=== PATIENT | male | born 1960 | race Caucasian/White ===

== ENCOUNTER 2021-10-15 10:07 | Day surgery (SDC) | payer OTHER ==
[2021-10-11 13:33] VITALS: BMI 23.7
[2021-10-15 12:04] VITALS: BP 124/76; PULSE 48; TEMP 98
== END 2021-10-15 12:27 | disposition home or self-care (01) ==
LOC: FASU-ENDO 10:07
PROVIDERS: ATTEND Internal Medicine Gastroenterology
PROC: 0DJD8ZZ Inspection of Lower Intestinal Tract, Via Natural or Artificial Opening Endoscopic (ICD-10-PCS; principal; 2021-10-15 11:18)
DX: Z12.11 Encounter for screening for malignant neoplasm of colon (principal)